=== PATIENT | female | born 1970 | race Two or more races ===

== ENCOUNTER 2025-02-02 16:12 | Emergency (ER) | payer OTHER ==
[~2025-02-02] VITALS: Ht 157.5 cm; Wt 64.4 kg
[2025-02-02] MEDS ORDERED: SYNTHROID100 MCG PO (16:34)
[2025-02-02] MEDS ORDERED: 0.9 % SODIUM CHLORIDE 1,000 ML IV ONE (17:00)
[2025-02-02 17:41] LABS: BASO % 0.6 % (0.1-1.2); EOS # 0.07 (0.04-0.54); EOS % 0.6 % (0.7-7.0); HEMATOCRIT 38.3 % (34.1-44.9); LYMPH # 1.85 (1.18-3.74); LYMPH % 14.8 % (19.3-53.1); MONO # 0.85 (0.24-0.82); MONO % 6.8 % (4.7-12.5); NEUT # 9.66 (1.56-6.13); PLATELET COUNT 337 K/uL (163-369); RED BLOOD COUNT 4.51 M/uL (3.93-5.22); RED CELL DISTRIBUTION WIDTH 12.1 % (11.6-14.4)
[2025-02-02 18:01] LABS: INR 1.02; PARTIAL THROMBOPLASTIN TIME 28.7 SECONDS (22.0-34.0); PROTHROMBIN TIME 11.1 SECONDS (9.0-11.5)
[2025-02-02 18:17] LABS: PH,URINE 6.5 (5.0-8.0); URINE APPEARANCE Clear; URINE BILIRRUBIN Negative (NEGATIVE); URINE BLOOD Small; URINE COLOR Yellow; URINE GLUCOSE Negative (NEGATIVE); URINE KETONE Negative (NEGATIVE); URINE LEUKOCYTE Negative; URINE NITRATE Negative; URINE PROTEIN Negative (NEGATIVE); URINE UROBILINOGEN 0.2 E.U./dl
[2025-02-02 18:21] LABS: URINE BACTERIA 335.1 uL (0.0-1933); URINE WBC 3.3 uL (0.0-23.2)
[2025-02-02 18:22] LABS: ALBUMIN 4.2 gm/dL (3.4-5.0); BILIRUBIN TOTAL 0.61 mg/dL (0.3-1.2); CALCIUM 9.3 mg/dL (8.5-10.1); CREATININE SERUM 0.89 mg/dL (0.55-1.02); GFR 65.85; POTASSIUM 3.94 mEq/L (3.5-5.1); TOTAL PROTEIN 8.2 gm/dL (6.4-8.2)
[2025-02-02] MEDS ORDERED: METRONIDAZOLE500 MG PO (20:42)
[2025-02-02] MEDS ORDERED: CIPRO500 MG PO (20:42)
[2025-02-02] MEDS ORDERED: PROBIOTIC1 EAC2 PO (20:42)
[2025-02-02] MEDS ORDERED: PROTONIX40 MG PO (20:42)
[2025-02-02] MEDS ORDERED: LEVSIN/SL0.125 MG SL (20:43)
== END 2025-02-02 21:09 | disposition home or self-care (01) ==
LOC: ER 16:12
PROVIDERS: General Practice
DX: R10.32 Left lower quadrant pain (principal); I11.9 Hypertensive heart disease without heart failure; E03.8 Other specified hypothyroidism; K57.32 Diverticulitis of large intestine without perforation or abscess without bleeding
CPT/HCPCS: 36415; 74177; Q9965